=== PATIENT | female | born 1995 | race Hispanic/Latino ===

== ENCOUNTER 2022-11-20 20:58 | Emergency (ER) | payer MEDICAID ==
[~2022-11-20] VITALS: Ht 154.9 cm; Wt 88.9 kg
[2022-11-20 21:00] VITALS: BP 156/85; PULSE 91; RESP 20
== END 2022-11-21 00:17 | disposition home or self-care (01) ==
LOC: EDH 20:58
DX: R20.0 Anesthesia of skin (principal)
CPT/HCPCS: 99281